=== PATIENT | female | born 1995 | race African-American/Black ===

== ENCOUNTER 2021-05-12 10:04 | Emergency (ER) | payer OTHER ==
[~2021-05-12] VITALS: Ht 172.7 cm; Wt 69.4 kg
[~2021-05-12 10:04] MED LIST: ALBUTEROL2.5 MG/0.5 IH
[2021-05-12 15:29] VITALS: BP 124/64
== END 2021-05-12 15:28 | disposition home or self-care (01) ==
LOC: ER 10:04
DX: O20.0 Threatened abortion (principal); Z3A.10 10 weeks gestation of pregnancy; J45.909 Unspecified asthma, uncomplicated; Z79.51 Long term (current) use of inhaled steroids